=== PATIENT | female | born 1980 | race Caucasian/White ===

== ENCOUNTER 2017-11-03 09:01 | Emergency (ER) | payer SELFPAY ==
[2017-11-03] MEDS ORDERED: Lidocaine Viscous Sol 2% 15 ml UD Cup ONE (09:16)
[2017-11-03] MEDS ORDERED: Lidocaine 1% w/Epinephrine 1:100K 20 ML VIAL ONE (09:16)
[2017-11-03] MEDS ORDERED: Bupivacaine 0.25% 10 ML VIAL ONE (09:16)
[2017-11-03 09:31] LABS: #Basophils 0.1 thou/uL (0.0-0.2); #Eosinphils 0.1 thou/uL (0.0-0.7); #Lymphocytes 2.9 thou/uL (1.20-3.40); #Monocytes 0.7 thou/uL (0.11-0.59); #Neutrophils 6.5 thou/uL (1.40-6.50); %Basophils 0.6 % (0.0-1.0); %Eosinophils 0.9 % (0.0-10.0); %Lymphocytes 28.1 % (21.0-51.0); %Monocytes 6.5 % (0.0-10.0); %Neutrophils 63.9 % (42.0-75.0); Hemoglobin 15.2 g/dL (12.0-16.0); Mean Corpuscular HGB CONC 35.8 g/dL (32.0-36.0); Mean Corpuscular Hemoglobin 32.7 pg (27.0-31.0); Mean Corpuscular Volume 91.5 fL (78.0-98.0); Mean Platelet Volume 7.3 fL (7.4-10.4); Platelet Count 220 thou/uL (130-400); RBC Distribution Width 12.1 % (11.5-14.5); Red Blood Cell (RBC) Count 4.66 mill/uL (4.20-5.40); White Blood Cell (WBC) Count 10.2 thou/uL (4.8-10.8)
[2017-11-03 09:51] LABS: ALT (SGPT) 13 U/L (8-55); AST (SGOT) 15 U/L (5-34); Albumin 4.1 g/dL (3.5-5.0); Alkaline Phosphatase 51 U/L (40-150); Anion Gap 10 mmol/L (10-20); BUN (Urea Nitrogen) 4 mg/dL (7.0-18.7); Bilirubin, Total 0.5 mg/dL (0.2-1.2); Calc. Creatinine Clearance 0 mL/min (70-130); Calcium 9.4 mg/dL (7.8-10.44); Carbon Dioxide 24 mmol/L (22-29); Chloride 108 mmol/L (98-107); Estimated GFR-MDRD Greater than 90; Globulin 3.3 g/dL (2.4-3.5); Glucose 93 mg/dL (70-105); Potassium 4.2 mmol/L (3.5-5.1); Protein, Total 7.4 g/dL (6.0-8.3); Sodium 138 mmol/L (136-145)
--- NOTE | 2017-11-03 11:20 | CT ---
CT NECK WITH CONTRAST: Multiple axial tomograms were obtained through the neck with IV enhancement. INDICATION: Complaints of throat pain and left lower molar tooth pain, possible dental infection. FINDINGS: The parotid glands and submandibular glands are symmetric and unremarkable. Thyroid unremarkable. Review of the teeth shows missing maxillary molars on the left. There is a left mandibular molar wit h abnormal lucency surrounding the roots which could represent a periapical abscess. There may be a focal cortical disruption at these roots which could represent site of infection. There is also evid ence of a large dayton involving the erupted portion of this molar with defect seen in the crown of th is molar. There is abnormal low attenuation seen in the left parapharyngeal tissues in the oropharynx beginning at this left mandibular molar. This low attenuation suggests edematous change which appears to invo lve the left palatine tonsil. The left palatine tonsil exhibits low attenuation and appears edematou s. The low attenuation extends inferiorly on the left into the region of the hypopharynx. The lingu al tonsils appear unremarkable. There is low attenuation suggesting edematous change in the paraphar yngeal tissues on the left seen between the lingual tonsil and the left submandibular gland. No circ umscribed abscess is identified. The hypopharynx and larynx appear unremarkable. There are enlarged submandibular lymph nodes on both sides, more prominent on the left with a submand ibular node measuring up to 1.4 cm. The visualized paranasal sinuses and mastoids are well aerated. This edematous change does involve the barker peeler space on the left primarily involving the medial pt erygoid. IMPRESSION: There is abnormal low attenuation suggesting edematous change involving the oropharynx posteriorly on the left extending into the left parapharyngeal region and involving the left palatine tonsil. Infl ammatory change should be suspected, although no defined fluid or abscess is seen at this time. Etio logy may originate at a posterior left mandibular molar which shows abnormal lucency surrounding the roots consistent with a periapical abscess and evidence of a small cortical disruption. A large sameera e is also seen within this molar. Oral surgery consultation may be of benefit and recommend close fo llowup. POS: [id number]
[2017-11-03] MEDS ORDERED: Ketorolac Tromethamine 30 MG/ML VIAL ONE (11:27)
[2017-11-03] MEDS ORDERED: Clindamycin/D5W 600 mg/50 ml Premix Bag ONE (11:27)
[2017-11-03] MEDS ORDERED: Dexamethasone 4 mg/ml Vial ONE (12:42)
[2017-11-03] MEDS ORDERED: ISOVUE-370 76%-LOCM 1 ML ONE (14:02)
== END 2017-11-03 12:54 | disposition home or self-care (01) ==
LOC: ERS 09:01
DX: K04.7 Periapical abscess without sinus (principal); F17.210 Nicotine dependence, cigarettes, uncomplicated
CPT/HCPCS: 36415; 70491; 80053; 85025; 85652; 86140; 96365; 96375; J1100; J1885; J2001; J3490; S0020